=== PATIENT | female | born 1955 | race Two or more races ===

== ENCOUNTER 2024-10-23 10:20 | Emergency (ER) | payer OTHER ==
[~2024-10-23] VITALS: Ht 149.9 cm; Wt 52.2 kg
[2024-10-23] MEDS ORDERED: predniSONE 20 MG TABLET ONE (11:10)
[2024-10-23 11:12] LABS: BASOPHILS % (AUTO) 0.6 % (0.0-2.0); EOSINOPHILS # (AUTO) 0.1 K/uL (0.0-0.7); EOSINOPHILS % (AUTO) 1.7 % (0.0-6.0); HEMATOCRIT 35 % (33-45); HEMOGLOBIN 11.7 g/dL (11.5-14.8); LYMPHOCYTES # (AUTO) 1.7 K/uL (0.8-4.8); LYMPHOCYTES % (AUTO) 20.4 % (20.0-44.0); MEAN CORPUSCULAR HEMOGLOBIN 30 PG (26.0-33.0); MEAN CORPUSCULAR HGB CONC 34 g/dl (31.0-36.0); MEAN CORPUSCULAR VOLUME 89 fL (82-100); MONOCYTES # (AUTO) 0.5 K/uL (0.1-1.30); MONOCYTES % (AUTO) 6.4 % (2.0-12.0); NEUTROPHILS # (AUTO) 5.8 K/uL (1.8-8.9); NEUTROPHILS % (AUTO) 70.9 % (43.0-81.0); PLATELET COUNT (AUTO) 309 K/uL (150-450); RED BLOOD CELL COUNT(AUTO) 3.94 MIL/uL (4.0-5.2); RED CELL DISTRIBUTION WIDTH 13.8 % (11.5-15.0); WHITE BLOOD COUNT (AUTO) 8.2 K/uL (4.3-11.0)
[2024-10-23] MEDS: predniSONE 20 MG TABLET PO ONE (11:14)
[2024-10-23 11:23] LABS: CALCIUM, SERUM 8.7 mg/dL (8.5-10.1); CREATININE 0.7 mg/dL (0.6-1.3); POTASSIUM 4.7 mmol/L (3.5-5.1)
[2024-10-23] MEDS ORDERED: ALBUTEROL FS 2.5 MG/0.5 ML VIAL.NEB ONE (11:43)
[2024-10-23] MEDS ORDERED: IPRATROPIUM NEB FS 0.5 MG/2.5 ML AMPUL.NEB ONE (11:43)
[2024-10-23] MEDS: IPRATROPIUM NEB FS 0.5 MG/2.5 ML AMPUL.NEB NEB ONE (11:45)
[2024-10-23] MEDS: ALBUTEROL FS 2.5 MG/3 ML VIAL.NEB NEB ONE (11:45)
[2024-10-23 11:47] VITALS: O2SAT 100
[2024-10-23 11:59] VITALS: O2SAT 100
[2024-10-23] MEDS ORDERED: PRED50TA PO (12:58)
[2024-10-23] MEDS ORDERED: AMOX-430 PO (12:58)
[2024-10-23] MEDS ORDERED: ALBU8.5H8 INH (12:58)
[2024-10-23 13:09] VITALS: BP 132/70; TEMP 97.9; O2SAT 100
[2024-10-23 15:42] LABS: ABG BASE EXCESS -0.9 mmol/L (-2.0-3.0); ABG OXYGEN SATURATION 98.7 % (94.0-98.0); ABG PCO2 29.4 mmHg (32.0-45.0); ABG PH 7.484 (7.350-7.450); ABG PO2 166.5 mmHg (83.0-108.0); MetHb 0.1 % (0.0-1.5); O2Hb 98.6 % (94.0-97.0); SITE, ABG LEFT RADIAL
== END 2024-10-23 13:09 | disposition home or self-care (01) ==
LOC: ER 10:24
DX: J18.9 Pneumonia, unspecified organism (principal); J45.909 Unspecified asthma, uncomplicated; R07.9 Chest pain, unspecified; R09.81 Nasal congestion; K21.9 Gastro-esophageal reflux disease without esophagitis; Z20.822 Contact with and (suspected) exposure to COVID-19
CPT/HCPCS: 99285; 71045; 87426; 93005; 82803; 87804 ×2; 85025; 80048; 36415; 36600; 94640; J7512